=== PATIENT | male | born 1985 | race Caucasian/White ===

== ENCOUNTER 2020-09-05 22:12 | Emergency (ER) | payer SELFPAY ==
[~2020-09-05] VITALS: Ht 177.8 cm; Wt 90.7 kg
[2020-09-05] MEDS ORDERED: SODIUM CHLORIDE 0.9% 1000ML 1,000 ML IV ONE (22:15)
== END 2020-09-05 22:30 | disposition short-term general hospital (02) ==
LOC: ER 22:17
DX: R00.2 Palpitations (principal); R00.0 Tachycardia, unspecified